=== PATIENT | male | born 1935 | race Hispanic/Latino ===

== ENCOUNTER 2016-08-07 06:48 | Day surgery (SDC) | payer OTHER ==
[~2016-08-07] VITALS: Ht 172.7 cm; Wt 79.9 kg
[~2016-08-07 06:48] MED LIST: AMLODIPINE BESY10 MG PO
[2016-08-07 08:21] VITALS: BP 145/70
[2016-08-07 09:30] VITALS: BP 158/75
[2016-08-07 10:13] VITALS: BP 125/62
== END 2016-08-07 10:20 | disposition home or self-care (01) ==
LOC: SDC 06:48
DX: H35.371 Puckering of macula, right eye (principal); H35.341 Macular cyst, hole, or pseudohole, right eye; I10 Essential (primary) hypertension; H40.9 Unspecified glaucoma; Z95.0 Presence of cardiac pacemaker; Z87.891 Personal history of nicotine dependence
CPT/HCPCS: J0690; J3300